=== PATIENT | male | born 2000 | race Two or more races ===

== ENCOUNTER 2023-05-20 06:18 | Emergency (ER) | payer OTHER ==
[~2023-05-20] VITALS: Ht 180.3 cm; Wt 104.5 kg
[2023-05-20] MEDS ORDERED: NEOMYCIN-BACITRACIN-POLYM UNITDOSE PKG TOP OINT TOP ONE (07:30)
[2023-05-20] MEDS ORDERED: ACETAMINOPHEN 500 MG TAB PO ONE (07:30)
[2023-05-20 07:50] LABS: Basophils # (auto) 0 10 ^3/uL (0-0.2); Basophils % (auto) 0.2 % (0.0-2.0); Eosinophils # (auto) 0.1 10 ^3/uL (0-0.8); Eosinophils % (auto) 0.4 % (0.0-7.0); Hematocrit 46.2 % (41.0-53.0); Hemoglobin 15.9 g/dL (13.5-17.5); Lymphocytes # (auto) 1.4 10 ^3/uL (0.4-5.4); Mean Corpuscular Hemoglobin 31.4 pg (28.0-32.0); Mean Corpuscular Hgb Conc. 34.3 g/dL (32.0-36.0); Mean Corpuscular Volume 91.5 fL (80.0-100.0); Monocytes # (auto) 0.7 10 ^3/uL (0-1.3); Monocytes % (auto) 5.6 % (0.0-12.0); Neutrophils # (auto) 9.8 10 ^3/uL (1.6-8.6); Neutrophils % (auto) 81.8 % (37.0-80.0); Red Blood Cells 5.05 10^6/uL (4.5-5.90); Red Cell Distribution Width 12.9 % (11.8-14.3); White Blood Cell 11.9 10^3/uL (4.4-10.8)
[2023-05-20 08:06] LABS: Albumin 4.5 g/dL (3.4-5.0); Calcium 9.3 mg/dL (8.5-10.1); Potassium 4.6 mmol/L (3.5-5.1)
[2023-05-20 08:11] LABS: BUN/Creatinine Ratio 16.3 (10.0-20.0); Bilirubin, Total 0.5 mg/dL (0.2-1.0); Total Protein 8.1 g/dL (6.4-8.2)
[2023-05-20] MEDS ORDERED: IBUP1TAB5 PO (08:30)
[2023-05-20 08:33] VITALS: TEMP 97.6
[2023-05-20 08:36] VITALS: BP 125/67; PULSE 71; RESP 16; O2SAT 98
== END 2023-05-20 08:41 | disposition home or self-care (01) ==
LOC: ER 06:18 → EDBD 06:18 → ER 08:39
DX: S20.219A Contusion of unspecified front wall of thorax, initial encounter (principal); V49.9XXA Car occupant (driver) (passenger) injured in unspecified traffic accident, initial encounter; Y93.89 Activity, other specified; Y92.89 Other specified places as the place of occurrence of the external cause; Y99.8 Other external cause status
CPT/HCPCS: 36415; 71045; 71120; 73130; 80053; 84484; 85025; 93005